=== PATIENT | female | born 1945 | race Caucasian/White ===

== ENCOUNTER 2025-06-27 06:21 | Day surgery (SDC) | payer MEDICARE, OTHER, SELFPAY | END 2025-06-27 10:31 | disposition home or self-care (01) | LOC: GI 06:21 | PROVIDERS: ATTENDING PHYSICIAN Internal Medicine Gastroenterology; FAMILY PHYSICIAN Family Medicine | DX: Z12.11 Encounter for screening for malignant neoplasm of colon (principal); K52.9 Noninfective gastroenteritis and colitis, unspecified; K57.30 Diverticulosis of large intestine without perforation or abscess without bleeding; K64.9 Unspecified hemorrhoids; D12.3 Benign neoplasm of transverse colon; D12.2 Benign neoplasm of ascending colon; K63.5 Polyp of colon | CPT/HCPCS: 45385; 45380; 88305 ==

== ENCOUNTER 2025-06-28 17:38 | Emergency (ER) | payer MEDICARE, OTHER, SELFPAY ==
[2025-06-28 17:43] VITALS: BP 181/87
[2025-06-28 18:20] LABS: Hematocrit 42.0 % (37.0-47.0); Hemoglobin 13.9 g/dL (12.0-16.0); Mean Corp Hgb Conc. 33.1 g/dL (33.0-37.0); Mean Corpuscular Volume 87.9 fL (81.0-99.0); Nucleated Red Blood Cells % 0 %; Platelet Count 255 10^3/uL (130-400); Red Cell Dist. Width 13.8 % (11.5-14.5)
[2025-06-28 18:35] LABS: ALT (SGPT) 19 U/L (0-35); AST (SGOT) 24 U/L (14-36); Albumin 4.3 g/dl (3.5-5.0); Alkaline Phosphatase 104 U/L (38-126); Blood Urea Nitrogen 15 mg/dl (7-17); Calcium 9.8 mg/dl (8.4-10.2); Carbon Dioxide 31 mmol/L (22-30); Chloride 102 mmol/L (98-107); Glucose 96 mg/dl (70-99); Potassium 3.9 mmol/L (3.5-5.1); Sodium 135 mmol/L (135-145); Total Protein 7.0 g/dl (6.3-8.2); eGFR > 60.00
[2025-06-28 20:09] VITALS: BMI 25.4
[2025-06-28 20:15] VITALS: BP 162/82
--- NOTE | 2025-06-28 22:21 | ED.GENMED ---
History of Present Illness
General
Chief Complaint: Abdominal Pain
Time Seen by Provider: 06/28/25 20:32
Nursing documentation reviewed up to this point in time: agreed with
History of Present Illness
History of Present Illness:
79-year-old female referred to the ER by her rotating equipment specialist for further evaluation of persistent right-sided abdominal pain status post colonoscopy yesterday with polypectomy x 4. Patient has been eating and drinking. She denies any fever or
chills. She reports the discomfort to be a constant dull ache. She has not taken any pain relievers for her symptoms. She denies any urinary complaints. She is not on any blood thinners.
Review of Systems
Review of Systems
Allergies reviewed?: Yes
Phy Exam
Physical Exam
Physical Exam:
Patient is awake, alert, appears in no acute distress, head is NCAT, PERRL, EOMI mucous membranes moist, conjunctiva pink, heart regular rate and rhythm without murmurs or ectopy, lungs are clear to auscultation without wheezes rales or rhonchi, no
JVD, abdomen is soft and nontender on palpation, extremities without edema, GCS is 15
Course
Orders/Labs/Results
Orders:
Orders
06/28/25 17:58
Complete Blood Count/With Diff Urgent
Comprehensive Metabolic Panel Urgent
06/28/25 18:19
CT Abd/pelvis W Iv Cont Urgent
Comment: colonoscopy with polyp removal yesterday
Reason For Exam: right flank pain
Abnormal Lab Results
06/28/25
17:58
MPV 11.7 H fL
(7.4-10.4)
Absolute Monos (auto) 0.7 H 10^3/uL
(0.1-0.6)
Monocytes % 10.4 H %
(1.7-9.3)
Carbon Dioxide 31 H mmol/L
(22-30)
06/28/25 17:58
06/28/25 17:58
Very reassuring normal CBC and chemistry panel
Vital Signs
Initial and Last Documented VS:
Initial Vital Signs
Temp Pulse Resp BP Pulse Ox
98.2 F 74 20 181/87 100
06/28/25 17:43 06/28/25 17:43 06/28/25 17:43 06/28/25 17:43 06/28/25 17:43
Last Documented Vital Signs
Temp Pulse Resp BP Pulse Ox
98.2 F 58 16 162/82 100
06/28/25 17:43 06/28/25 20:15 06/28/25 20:15 06/28/25 20:15 06/28/25 22:23
MDM/Problems Addressed
Differential Diagnosis Includes:
Differential diagnosis to consider but not limited to splenic or liver hematoma, acute colitis, bowel perforation, intra-abdominal fluid collection along with other etiologies considered
Chronic conditions affecting care:
Hypertension, high cholesterol, age greater than 65
*Radiology
Radiology exam reviewed: radiology read reviewed
*Pulse Oximetry
SaO2: 100
Oxygen Mode of Delivery: Room air
Patient hypoxic: no
*Critical Care Note
Total Time (30-74mins, 75-104mins- exclusive of procedures): Not Applicable
Update Note
Update Note:
Patient resting comfortably, in no acute distress throughout time in the emergency department. Once CT results available, I reviewed this information with on-call rotating equipment specialist who is familiar with patient's care, Dr. Dockery. She would feel the
patient would be safe for discharge home, no evidence for acute worrisome post procedural complication. She would recommend use of Tylenol or tramadol as needed for pain and would refer patient to seek reevaluation for any fevers or chills. I
discussed all test results with patient and present at bedside. 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 She and her
feel comfortable with plan for discharge home and have no questions prior to leaving the department.
ED Attending Note
-
Portions of this chart may have been created with voice recognition software.� Occasional wrong word or��sound alike� substitutions may have occurred due to the inherent limitations of voice recognition software.
Discharge Plan
Departure
Patient Disposition: Home (Routine Discharge)
Date of Disposition: 06/28/25
Time of Disposition: 22:21
Patient with high blood pressure during this ER visit?: No
Discharge Problem:
Abdominal pain
Instructions: Abdominal pain in adults (DC)
Referrals:
Gabriel Dietz DO [Family Provider, Family Practice]
Wiley Odonnell MD [Active, Gastroenterology] - As needed
Activity Restrictions/Additional Instructions:
Use Tylenol as needed for discomfort. Encourage fluids. Please return to regular diet as tolerated. Please contact gastroenterology office if you experience any fevers or chills or any worsening pain. Return to the ER for any concerns
Interventions
Interventions:
*Risk Screen - Suicide Last Done: 06/28/25 17:43
*General Assessment Last Done: 06/28/25 20:12
*Neglect/Abuse Screening Last Done: 06/28/25 17:43
*ED- Fall Risk Assessment Last Done: 06/28/25 20:12
*ED COVID-19 Vaccine History Last Done: 06/28/25 20:12
*ED Influenza Vaccine History Last Done: 06/28/25 20:12
*Nursing Disposition Last Done: 06/28/25 22:39
QE-Tsqfrr-Zilfmxxvwm Assessment Last Done: 06/28/25 20:11
Discharge Date and Time
Discharge Date/Time: 06/28/25 22:40
Print Language: AUSTRIAN
== END 2025-06-28 22:40 | disposition home or self-care (01) ==
LOC: EMR 17:38
PROVIDERS: Student in an Organized Health Care Education/Training Program; EMERGENCY PHYSICIAN Emergency Medicine; FAMILY PHYSICIAN Family Medicine
DX: R10.A1 Flank pain, right side (principal); J47.9 Bronchiectasis, uncomplicated; I10 Essential (primary) hypertension; E78.00 Pure hypercholesterolemia, unspecified; A31.9 Mycobacterial infection, unspecified
CPT/HCPCS: 99284; 74177; 80053; 85025; Q9967